=== PATIENT | female | born 1985 | race Caucasian/White ===

== ENCOUNTER 2017-09-22 05:38 | Inpatient (IN) | payer OTHER ==
--- NOTE | 2017-09-14 13:49 | PAT Medication Instructions ---
Service Date Sep 14, 2017. Current Home Medication List Xbezrealyb-Angpfwsopdmnz-Creis (Fioricet), 1 TAB PO PRN Calcium/Vitamin D (Os-Dao 500 Plus D), 1 TAB PO QAM Ferrous Sulfate (Kp Ferrous Sulfate), 1 TAB PO QAM Multivit/Min/Iron/Fol Ac/Pren ( Vitamin), 1 TAB PO QAM [Fiber Tab], 1 TAB PO QAM Medication Instructions For Your Scheduled Surgery - Hold the following medications the morning of surgery: [Fiber Tab], 1 TAB PO QAM Calcium/Vitamin D (Os-Dao 500 Plus D), 1 TAB PO QAM Ferrous Sulfate (Kp Ferrous Sulfate), 1 TAB PO QAM Multivit/Min/Iron/Fol Ac/Pren ( Vitamin), 1 TAB PO QAM Vsigfqzjlm-Ihjtxqdevrdze-Ooajz (Fioricet), 1 TAB PO PRN *nothing to eat or drink after midnight* If you have any questions please call us at [phone] or [phone] or [phone]
[2017-09-14 14:33] LABS: BASO % 0.1 %; BASO ABS # 0.01 K/uL (0-0.2); EOS % 0.3 %; EOS ABS # 0.03 K/uL (0-0.5); HEMATOCRIT 34.1 % (37-47); HEMOGLOBIN 11.6 g/dL (12.0-16.0); IG# 0.02 K/uL (0.00-0.02); LYMPH ABS # 1.42 K/uL (1.2-3.4); MEAN CORPUSCULAR HEMOGLOBIN 32.3 pg (25-34); MEAN PLATELET VOLUME 10.9 fL (7.4-10.4); MONO % 6.8 %; MONO ABS # 0.64 K/uL (0.11-0.59); NEUT % 77.6 %; NEUT ABS # 7.33 K/uL (1.4-6.5); PLATELET COUNT 245 K/uL (130-400); RED CELL DISTRIBUTION WIDTH SD 52.5 fL (36.4-46.3); WHITE BLOOD COUNT 9.45 K/uL (4.8-10.8)
[~2017-09-22] VITALS: Ht 162.6 cm; Wt 114.8 kg
[2017-09-22] VITALS (13 sets, daily range): BP systolic 110–125; BP diastolic 67–77; PULSE 52–64; TEMP 36.3–36.7; O2SAT 97–100; Ht 162.6 cm; Wt 114.8 kg
[~2017-09-22 05:38] MED LIST: BUTA1CAP17 PO; CALC500C70 PO; FERR1TAB13 PO; FIBER TAB PO; PRENTAB26 PO
[2017-09-22 05:58] LABS: BASO % 0.2 %; BASO ABS # 0.02 K/uL (0-0.2); EOS % 0.6 %; EOS ABS # 0.05 K/uL (0-0.5); HEMATOCRIT 32.7 % (37-47); HEMOGLOBIN 11.4 g/dL (12.0-16.0); IG# 0.02 K/uL (0.00-0.02); LYMPH % 17.7 %; LYMPH ABS # 1.46 K/uL (1.2-3.4); MEAN CORPUSCULAR HEMOGLOBIN 32.8 pg (25-34); MEAN PLATELET VOLUME 9.9 fL (7.4-10.4); MONO % 10.2 %; MONO ABS # 0.84 K/uL (0.11-0.59); NEUT % 71.1 %; NEUT ABS # 5.84 K/uL (1.4-6.5); PLATELET COUNT 233 K/uL (130-400); RED CELL DISTRIBUTION WIDTH SD 50.7 fL (36.4-46.3); WHITE BLOOD COUNT 8.23 K/uL (4.8-10.8)
[2017-09-22] MEDS: LACTATED RINGER'S 1000ML 1,000 ML IV SCH ×2 (06:00→06:57)
[2017-09-22] MEDS ORDERED: CITRIC ACID/SODIUM CITRATE 15 ML UDC PO SCH (06:00)
[2017-09-22] MEDS ORDERED: CEFAZOLIN IV 3,000 MG in SYRINGE 0 ML IV SCH (06:00)
[2017-09-22 06:01] LABS: MEAN CORPUSCULAR HGB CONC 34.9 g/dl (32-36)
[2017-09-22] MEDS ORDERED: HYDROmorphone INJ 1 MG/ML SYR IV PRN (06:30)
[2017-09-22] MEDS ORDERED: PROMETHAZINE HCL INJ 12.5 MG in SODIUM CHLORIDE 0.9% 50ML 50 ML IV PRN (06:30)
[2017-09-22] MEDS ORDERED: FENTANYL CITRATE INJ 50 MCG/1 ML 2 ML VIAL IV PRN (06:30)
[2017-09-22] MEDS ORDERED: ACETAMINOPHEN 1000 MG/100 ML IV IV SCH (06:30)
[2017-09-22] MEDS ORDERED: EpHEDrine SULFATE INJ 50 MG/ML AMP IV PRN ×2 (06:30→09:00)
[2017-09-22] MEDS ORDERED: ATROPINE SULFATE 0.1 MG/ML 5ML SYR IV PRN (06:30)
[2017-09-22] MEDS ORDERED: PHENYLEPHRINE 100MCG/ML 5ML SYR IV PRN (06:30)
[2017-09-22] MEDS ORDERED: ONDANSETRON INJ 2 MG/ML 2 ML VIAL IV PRN ×2 (06:30→09:00)
[2017-09-22] MEDS ORDERED: EpHEDrine SULFATE INJ 50 MG/ML AMP ONE (06:31)
[2017-09-22] MEDS ORDERED: PHENYLEPHRINE HCL INJ 10 MG/ML VIAL ONE ×2 (06:31→07:37)
[2017-09-22] MEDS ORDERED: OXYTOCIN INJ 10 UNITS/ML VIAL ONE ×3 (06:32→07:37)
[2017-09-22] MEDS ORDERED: FENTANYL CITRATE INJ 50 MCG/1 ML 2 ML VIAL ONE (06:53)
[2017-09-22] MEDS ORDERED: MoRPHine SULFATE PF 1 MG/ML 10 ML AMP/VIAL ONE (06:53)
--- NOTE | 2017-09-22 07:05 | History & Physical Bridge Note ---
H&P Re-Evaluation Bridge Note: I have examined the patient, reviewed the History & Physical and in the interval since the performance of the History & Physical I have noted the following changes of clinical significance: No changes noted
[2017-09-22] MEDS ORDERED: LACTATED RINGER'S 1000ML 1,000 ML IV SCH (08:36)
--- NOTE | 2017-09-22 08:40 | [facility] Post Operative Brief Note ---
Immediate Operative Summary Operative Date Sep 22, 2017. Pre-Operative Diagnosis Term ; History of prior Caesarean Section;Requesting Permanent Sterilization Post-Operative Diagnosis Same Procedure(s) Performed Repeat Caesarean Section with bilateral tubal ligation Surgeon Dr. Olivarez Carton Stamper Surgeon(s) Dr. Colon Estimated Blood Loss 600 cc Findings Consistent with Post-Op Diagnosis Specimens cord blood placenta-exam portions of right and left fallopian tubes Drains Rojas to [place] Anesthesia Type Spinal Complication(s) none Disposition Accompanied Pt To Recover: no Disposition: L&D
[2017-09-22] MEDS ORDERED: BENZOCAINE 20% AER SPR 82.5 GM CAN EXT PRN (08:45)
[2017-09-22] MEDS ORDERED: DIPHTHERIA/TETANUS/PERTUSSIS 0.5 ML SYR/VIAL IM. ONE (08:45)
[2017-09-22] MEDS ORDERED: HYDROCORTISONE ACETATE 25 MG SUPP PR PRN (08:45)
[2017-09-22] MEDS ORDERED: LANOLIN OINT EXT PRN (08:45)
[2017-09-22] MEDS ORDERED: SENNA 8.6 MG TAB PO PRN (08:45)
[2017-09-22] MEDS ORDERED: MAGNESIUM HYDROXIDE SUSP 30 ML UDC PO PRN (08:45)
[2017-09-22] MEDS ORDERED: SUPERCREAM 0.870 % 15GM JAR EXT PRN (08:45)
[2017-09-22] MEDS ORDERED: LACTATED RINGER'S 1000ML 500 ML IV PRN (08:48)
[2017-09-22] MEDS ORDERED: SODIUM CHLORIDE 0.9% 1000ML 1,000 ML IV PRN (08:48)
[2017-09-22] MEDS ORDERED: NALOXONE HCL INJ 1 MG in SODIUM CHLORIDE 0.9% 1000ML 1,000 ML IV PRN ×4 (08:48)
[2017-09-22] MEDS ORDERED: NALOXONE HCL INJ 0.08 MG in SYRINGE 1.8 ML IV PRN (08:48)
[2017-09-22] MEDS ORDERED: MoRPHine SULFATE 2 MG/ML CARP IV PRN (09:00)
[2017-09-22] MEDS ORDERED: DiphenhydrAMINE HCL 50 MG/ML VIAL IV PRN (09:00)
[2017-09-22] MEDS ORDERED: METOCLOPRAMIDE HCL INJ 20 MG in SODIUM CHLORIDE 0.9% 50ML 50 ML IV PRN (09:00)
[2017-09-22] MEDS: SIMETHICONE 80 MG CHEW PO SCH ×4 (09:00→20:25)
[2017-09-22] MEDS ORDERED: NALBUPHINE HCL INJ 10 MG/ML AMP IV PRN (09:00)
[2017-09-22] MEDS ORDERED: NO NARCOTICS OR SEDATIVES SCH (09:00)
[2017-09-22] MEDS ORDERED: KETOROLAC TROMETHAMINE 30 MG/ML VIAL IV. PRN (09:00)
[2017-09-22] MEDS ORDERED: PROMETHAZINE HCL INJ 25 MG in SODIUM CHLORIDE 0.9% 50ML 50 ML IV PRN (09:00)
[2017-09-22] MEDS ORDERED: MEPERIDINE HCL 25 MG/ML CARP IV PRN (09:00)
[2017-09-22] MEDS ORDERED: NALOXONE HCL 0.4 MG/1 ML VIAL/CARP IV PRN (09:00)
[2017-09-22] MEDS ORDERED: MoRPHine SULFATE PF 1 MG/ML 10 ML AMP/VIAL EPI PRN (09:00)
[2017-09-22] MEDS: OXYTOCIN INJ 30 UNITS in LACTATED RINGER'S 1000ML 1,000 ML IV SCH ×2 (09:07→17:46)
--- NOTE | 2017-09-22 09:40 | OPERATIVE REPORT ---
DATE OF OPERATION: 09/22/2017 PREOPERATIVE DIAGNOSES: 1. Intrauterine at 39 weeks' gestation. 2. History of prior section x2, requesting repeat section. 3. Requesting permanent sterilization. POSTOPERATIVE DIAGNOSES: Same. OPERATIVE PROCEDURE: Repeat low transverse section with bilateral tubal ligation. SURGEON: Dr. Paul Olivarez. TRAFFIC I MANAGER: Dr. Brandan Almeida. ANESTHESIA: Spinal. ESTIMATED BLOOD LOSS: 600 mL. IV FLUIDS: 1300 mL crystalloids. SPECIMENS: Cord blood and placenta to pathology and portions of left and right fallopian tubes. DRAINS: Rojas to gravity. COMPLICATIONS: None. DISPOSITION: Labor and delivery. OPERATIVE FINDINGS: The patient delivered a viable female in the vertex position at 07:53 a.m. on 09/22/2017 via repeat low transverse section. Apgars and weight are pending. Cord blood was then obtained and an intact placenta with 3-vessel cord was delivered manually at 07:54 and sent to pathology. Grossly normal uterus and bilateral tubes and ovaries were noted. Bilateral tubal ligation was performed via [place] technique. Bilateral tubal segments were sent to pathology. Both the patient and baby tolerated the surgery well and were sent to recovery with stable vital signs. OPERATIVE PROCEDURE IN DETAIL: The patient was taken to the operating room, where spinal anesthesia was administered. She was immediately placed in dorsal supine position with a left lateral tilt and was prepped and draped in a manner appropriate for the procedure. Once anesthesia was found be adequate, a Pfannenstiel skin incision was made over the previous surgical scar and was carried down through to a layer of the rectus fascia. The fascia was nicked in the midline and extended bilaterally with curved Colindres scissors. The superior aspect of the fascial incision was grasped with Lisa clamps, elevated, and the rectus muscles were dissected off with the use of the electrocautery and curved Colindres scissors. Likewise, the inferior aspect of the fascial incision was grasped with Lisa clamps, elevated, and the rectus muscles were dissected off with the use of the curved Colindres scissors and electrocautery. The rectus muscles were in midline. Peritoneum was entered bluntly and extended cephalocaudally with gentle traction. The bladder blade was then placed within the abdomen. The vesicouterine peritoneum was then identified and a bladder flap was created with Metzenbaum scissors and digital traction. The bladder was pushed away from the lower uterine segment and a bladder flap was reincorporated beneath the bladder blade. A transverse incision was then made on the uterus and extended bilaterally with digital traction. Membranes were ruptured with clear amniotic fluid noted. The baby's head was identified and delivered through the incision along with the rest of the baby. Baby was bulb suctioned at delivery. Cord was clamped x2. The baby was immediately handed to an awaiting horizontal resaw operator for further evaluation and management. Please see their notes for further baby assessment. Cord blood was then obtained and intact placenta with 3-vessel cord delivered through the incision manually and sent to pathology. The uterus was then exteriorized and wrapped in a moist laparotomy sponge. The uterus was then cleared of any trailing membranes and debris with the laparotomy sponge. The uterine incision was then grasped with ring forceps at 4 quadrants and was closed with 0 Vicryl suture in continuous locking fashion. A second layer of 0 Vicryl suture was used in an imbricating fashion to ensure hemostasis. Any residual bleeding was suture ligated with 0 Vicryl suture in a [id number] interrupted fashion. Excellent hemostasis was noted at the incision. Attention was then directed towards the right adnexa, where the right fallopian tube was followed out to its fimbriated end. The fallopian tube was grasped at midpoint and was suture ligated with 0 chromic suture via [place] technique and was doubly suture ligated. The tubal segment was then removed with Metzenbaum scissors and sent to pathology. Tubal stumps were then cauterized. Attention was directed towards the left fallopian tube, which was likewise followed out to its fimbriated end, grasped at midportion with a [place] clamp and doubly suture ligated with 0 chromic suture via [place] technique. Tubal segment was then removed with Metzenbaum scissors and sent to pathology. The tubal stumps were then cauterized. The posterior cul-de-sac was then irrigated with warm saline solution. The uterus was then placed back within its normal anatomic position within the abdomen. The anterior cul-de-sac was then irrigated with warm saline solution. The incision was noted to be hemostatic. Madonna was placed over the incision for hemostatic purposes. All instruments were then removed from the abdomen. The peritoneum was grasped with Sandee clamps and closed with 2-0 Vicryl suture in continuous running fashion. The rectus fascia was then closed with 0 Vicryl suture in continuous running fashion. Subcutaneous tissue was reapproximated with 2-0 Vicryl suture. Skin was then closed with magdalena. Excellent hemostasis was noted through all tissue layers. All sponge, instrument and needle counts were found to be correct x2. The patient tolerated the procedure well and was sent to recovery with stable vital signs. I attest to the content of the Intraoperative Record and any orders documented therein. Any exception s are noted below.
--- NOTE | 2017-09-22 10:45 | Anesthesiology Progress Note ---
Anesthesia Post Op Note Date & Time Sep 22, 2017 at 10:45 Notes Mental Status: alert / awake / arousable, participated in evaluation Pt Amnestic to Procedure: Yes Nausea / Vomiting: adequately controlled Pain: adequately controlled Airway Patency, RR, SpO2: stable & adequate BP & HR: stable & adequate Hydration State: stable & adequate Neuraxial Anesthesia: was administered, sensory block is resolving Anesthetic Complications: no major complications apparent
[2017-09-22] MEDS: DOCUSATE SODIUM 100 MG CAP PO SCH (20:25)
[2017-09-23] VITALS (11 sets, daily range): BP systolic 90–121; BP diastolic 62–76; PULSE 62–69; TEMP 36.6–37.1; O2SAT 96–99
[2017-09-23] MEDS ORDERED: OXYCODONE/ACETAMINOPHEN 5-325 TAB PO PRN (01:30)
[2017-09-23] MEDS ORDERED: KETOROLAC TROMETHAMINE 30 MG/ML VIAL IV. PRN (01:30)
[2017-09-23] MEDS ORDERED: DC INTRASPINAL MORPHINE ONE (01:30)
[2017-09-23] MEDS ORDERED: ONDANSETRON INJ 2 MG/ML 2 ML VIAL IV PRN (01:30)
[2017-09-23 07:04] LABS: BASO % 0.1 %; BASO ABS # 0.01 K/uL (0-0.2); EOS % 0.4 %; EOS ABS # 0.04 K/uL (0-0.5); HEMATOCRIT 32.5 % (37-47); HEMOGLOBIN 10.7 g/dL (12.0-16.0); IG# 0.03 K/uL (0.00-0.02); LYMPH % 6.9 %; LYMPH ABS # 0.75 K/uL (1.2-3.4); MEAN CELL VOLUME 96.4 fL (80-100); MEAN CORPUSCULAR HEMOGLOBIN 31.8 pg (25-34); MEAN CORPUSCULAR HGB CONC 32.9 g/dl (32-36); MEAN PLATELET VOLUME 10.6 fL (7.4-10.4); MONO % 8.5 %; MONO ABS # 0.92 K/uL (0.11-0.59); NEUT % 83.8 %; NEUT ABS # 9.11 K/uL (1.4-6.5); PLATELET COUNT 195 K/uL (130-400); RED CELL DISTRIBUTION WIDTH CV 15.4 % (11.5-14.5); RED CELL DISTRIBUTION WIDTH SD 53.5 fL (36.4-46.3); WHITE BLOOD COUNT 10.86 K/uL (4.8-10.8)
--- NOTE | 2017-09-23 07:37 | OB/GYN Progress Note ---
VOICE COACH Progress Note Date of Service: Sep 23, 2017. Patient is seen and examined. She feels well, no complaints. Pain is under control with oral meds. Ambulating without dizziness Voiding without difficulty Tolerating clear diet with out N&V Flatus + BM NEG Bleeding is minimal No fever/ chills/ CP/ SOB/ N&V/ Leg pain Breast feeding without problems Date Time Temp Pulse Resp B/P (MAP) Pulse Ox O2 Delivery O2 Flow Rate FiO2 09/23/17 04:19 36.8 67 18 105/70 (82) 97 Room Air 09/23/17 01:30 18 97 09/23/17 01:00 16 96 09/23/17 00:00 16 96 09/23/17 00:00 98 Room Air 09/23/17 00:00 36.7 62 18 121/76 (91) 98 Room Air 09/22/17 23:00 18 98 09/22/17 21:00 20 98 09/22/17 20:15 20 97 09/22/17 19:05 18 97 09/22/17 19:05 36.7 64 18 110/71 (84) 97 Room Air 09/22/17 19:05 97 Room Air 09/22/17 18:15 16 99 09/22/17 17:15 15 100 09/22/17 16:15 16 100 09/22/17 15:15 36.7 54 16 114/67 (83) Room Air 09/22/17 15:15 16 100 09/22/17 15:15 100 Room Air 09/22/17 14:15 18 100 09/22/17 13:15 18 99 09/22/17 12:15 16 100 09/22/17 11:45 36.4 58 16 125/77 (93) 100 Room Air 09/22/17 11:15 99 Room Air 09/22/17 11:15 16 99 09/22/17 11:15 36.3 52 16 110/71 (84) 99 Room Air Last 24 Hours Test 09/23/17 05:57 White Blood Count 10.86 K/uL Red Blood Count 3.37 M/uL Hemoglobin 10.7 g/dL Hematocrit 32.5 % Mean Corpuscular Volume 96.4 fL Mean Corpuscular Hemoglobin 31.8 pg Mean Corpuscular Hemoglobin Concent 32.9 g/dl Platelet Count 195 K/uL Mean Platelet Volume 10.6 fL Neutrophils (%) (Auto) 83.8 % Lymphocytes (%) (Auto) 6.9 % Monocytes (%) (Auto) 8.5 % Eosinophils (%) (Auto) 0.4 % Basophils (%) (Auto) 0.1 % Neutrophils # (Auto) 9.11 K/uL Lymphocytes # (Auto) 0.75 K/uL Monocytes # (Auto) 0.92 K/uL Eosinophils # (Auto) 0.04 K/uL Basophils # (Auto) 0.01 K/uL RDW Standard Deviation 53.5 fL RDW Coefficient of Variation 15.4 % Immature Granulocyte % (Auto) 0.3 % Immature Granulocyte # (Auto) 0.03 K/uL PE: General: Alert, orientedx3, NAD CVS: S1S2 RRR Lungs; CTAB Abd: soft, NT, ND, BS+, fundus firm, below Umbilicus Dressing: Clean, dry, intact, will remove after 24 hours from surgery Perineum intact, Lochia rubra minimal Ext; NT, no edema AP: 32 yo s/p C Section, pod# 1 VSS Afebrile doing well Continue routine postop care Encourage ambulation, PO intake All questions were answered
[2017-09-23] MEDS: FERROUS SULFATE 325 MG TAB PO SCH (07:59)
[2017-09-23] MEDS: SIMETHICONE 80 MG CHEW PO SCH ×4 (07:59→20:16)
[2017-09-23] MEDS: PRENATAL VITAMIN TAB PO SCH (07:59)
[2017-09-23] MEDS: DOCUSATE SODIUM 100 MG CAP PO SCH ×2 (07:59→20:16)
[2017-09-23] MEDS: IBUPROFEN 600 MG TAB PO PRN ×3 (13:16→22:08)
[2017-09-23] MEDS: OXYCODONE/ACETAMINOPHEN 5-325 TAB PO PRN ×2 (17:10→22:08)
[2017-09-23] MEDS ORDERED: BISACODYL 5 MG TABEC PO ONE (22:00)
[2017-09-24 07:02] LABS: HEMOGLOBIN 11.1 g/dL (12.0-16.0)
[2017-09-24] MEDS: FERROUS SULFATE 325 MG TAB PO SCH (07:49)
[2017-09-24] MEDS: SIMETHICONE 80 MG CHEW PO SCH ×2 (07:49→11:58)
[2017-09-24] MEDS: DOCUSATE SODIUM 100 MG CAP PO SCH (07:49)
[2017-09-24] MEDS: PRENATAL VITAMIN TAB PO SCH (07:49)
[2017-09-24] MEDS: IBUPROFEN 600 MG TAB PO PRN ×2 (07:50→12:24)
[2017-09-24] MEDS: OXYCODONE/ACETAMINOPHEN 5-325 TAB PO PRN ×2 (07:50→12:25)
[2017-09-24 07:55] VITALS: BP 115/78; PULSE 67; TEMP 36.7; O2SAT 100
[2017-09-24] MEDS ORDERED: BISACODYL 10 MG SUPP PR PRN (08:45)
--- NOTE | 2017-09-24 10:44 | OB/GYN Progress Note ---
POWER PROJECT MANAGER Progress Note Date of Service Sep 24, 2017. Subjective conversation w/ patient, physical exam Ambulation: ambulating normally Voiding: no voiding problems Passing Gas: Yes Diet Tolerance: Regular Diet Lochia: Moderate Feeding Type: Breast Feeding Review of Systems Constitutional: No fever, No chills, No sweats, No weight loss, No weakness, No fatigue, No problem reported Respiratory: No cough, No sputum, No wheezing, No shortness of breath, No dyspnea on exertion, No dyspnea at rest, No hemoptysis, No problem reported Cardiac: No chest pain, No orthopnea, No PND, No edema, No claudication, No palpitations, No problem reported Breast: No see HPI, No breast lump, No change in shape, No nipple discharge, No breast pain, No problem reported Abdomen: No pain, No nausea, No vomiting, No diarrhea, No constipation, No GI bleeding, No problem reported Female : No see HPI, No dysuria, No urinary frequency, No hematuria, No incontinence, No abnormal vaginal bleeding, No vaginal discharge, No problem reported Objective Vital Signs Date Time Temp Pulse Resp B/P (MAP) Pulse Ox O2 Delivery O2 Flow Rate FiO2 09/23/17 23:50 36.6 69 16 90/62 (71) 97 Room Air 09/23/17 23:50 97 Room Air 09/23/17 20:15 36.6 69 20 102/70 (81) 99 Room Air 09/23/17 16:00 37.1 68 16 107/73 (84) Physical Exam General Appearance: WELL-APPEARING, WD/WN, NO APPARENT DISTRESS Respiratory/Chest: chest non-tender, lungs clear, normal breath sounds Cardiovascular: regular rate, rhythm, no edema, no gallop Abdomen: normal bowel sounds, non tender, soft Fundus: Firm Incision Description: Clean, Dry & Intact Extremities: normal range of motion, non-tender, normal inspection Laboratory Results Last 24 Hours Test 09/24/17 06:29 Hemoglobin 11.1 g/dL Hematocrit 33.0 % Assessment and Plan Day Number: 2 Continue Routine Care: Post top day #2 pt doing well pt wishes to be discharged home today
[2017-09-24] MEDS ORDERED: MTR600X PO (10:45)
[2017-09-24] MEDS ORDERED: OXYC-57 PO (10:45)
--- NOTE | 2017-09-24 10:47 | Discharge Instructions ---
Discharge Instructions Date of Service Sep 24, 2017. Admission Reason for Admission: Previous Section, Desires Sterilization Discharge Discharge Diagnosis / Problem: postop Discharge Goals Goal(s): Routine recovery after Activity Recommendations Activity Limitations: as noted below ACTIVITY RECOMMENDATIONS: * Gradual return to full activity over the next 2-3 weeks. * No lifting - nothing heavier than baby over the next 2-3 weeks. * Do not engage in vigorous exercise, sexual activity or sports until cleared by your physician. * Do not drive or operate any motorized equipment until cleared by your physician. * You may shower/bathe daily. BREAST CARE: If you are not breast feeding: * Wear a supportive bra 24 hours a day for one to two weeks. * Avoid stimulating your breasts and nipples as much as possible during the first few weeks after delivery. * When taking a shower, have the warm water hit your back, not breasts. * When your breasts feel full, apply ice packs. Usually three to four times a day helps ease the discomfort. * Take a mild pain medication (Tylenol/Motrin) when you are uncomfortable. If breast feeding: * Use breast milk to lubricate nipples. Lansinoh cream may be used for sore nipples. You do not need to remove cream prior to breast feeding. If using a different brand of cream, check the label for directions regarding removal of cream prior to nursing. * Wear a supportive bra. * If having problems with breasts or breast feeding, call a corporate health consultant or your health care provider. OVER THE COUNTER MEDICATION: * For discomfort or pain, you may use Acetaminophen (Tylenol), Ibuprofen (Advil ), or Naproxen (Aleve) following the package directions. * For constipation you may use Colace following the package directions. SPECIAL CARE INSTRUCTIONS: When you are discharged from the hospital, it is important for you to follow the instructions listed below: * During the first week at home, you should be able to care for yourself and your baby. In addition, the usual light household activities are encouraged. * Limit your activities to the way you feel. Do not try to clean the house or move furniture. Be sensible. * If you actively engage in sports and have done so up until the time of your delivery, you may resume these activities as soon as you feel able. This may take up to one month or even longer. Use good judgment. * Continue to take your vitamins for at least six weeks after the of your baby. * Your diet need not be limited unless you were on a special diet before your delivery. Breast-feeding mothers need around 2500 calories per day and at least 64-80 ounces of fluid per day (8 to 10 glasses). * You should eat foods from the four major food groups. Crash diets or fad diets are to be avoided. Eating lean meats, fresh fruits and vegetables, low-fat dairy products, high fiber foods and a regular exercise program, will help you get back to your pre- weight without putting your health at risk. * Constipation is sometimes a problem after delivery. Take a mild laxative as needed. If breast feeding, Milk of Magnesia is acceptable to use. You may use a suppository or Fleets enema if no episiotomy. * A daily shower or tub bath is suggested. Be sure to thoroughly and gently dry the perineum. * A bloody vaginal discharge will usually continue until around four weeks post . A small amount of bleeding may continue for as long as six weeks. Vaginal discharge changes from the bright red bleeding after delivery to pink then brownish and finally yellowish-pink before becoming white and disappearing. * Bleeding may increase with activity. Your first period may come in 4-8 weeks. If you are breast feeding, your period may be delayed even longer. * [place] (sex) can begin whenever both you and your partner feel comfortable and do not have any form of genital infection. It is recommended that you wait at least six weeks for internal and external healing to occur. If you have questions, please talk to your health care practitioner. A condom should be used to prevent infection and . * Foreplay, gentle intercourse and lubrication is very important the first several times to prevent pain. A water-based lubricant such as K-Y jelly or Astroglide may be used. * Tampons and/or Douching should be avoided until after six weeks check-up. * If you have RH negative blood and your baby is RH positive, you will receive RHOGAM by injection prior to discharge. The nurse will give you a card to keep with you that has the date and place that you received RHOGAM after delivery. * During your care, you had a Rubella screen done to check for the presence of rubella antibodies in your blood. If your test was negative, you will receive a Rubella vaccine prior to discharge. This vaccine may cause a fever, soreness at the injection site and flu-like symptoms. If these symptoms persist, notify your health care practitioner. is not advised for three months after a Rubella vaccine. * Verbalizes understanding of car seat law as reviewed with patient nursing. * Car Seat hand-out given and reviewed with patient by nursing. * Shaken baby information reviewed with patient by nursing. Call you doctor if: * Heavy bleeding (saturating several pads an hour) or passing clots the size of your fist. * A fever >101 degrees F (38.3 degrees C) on two occasions four hours apart and /or chills. * Unusual pain in the pelvic or vaginal areas. Pain should improve each day . * Call the doctor for any increased redness, drainage or swelling around the incision and any pain unrelieved by prescribed pain medication. * Any signs or symptoms of phlebitis (possible blood clots forming in the veins ): leg pain, warm, red or swollen area on leg. * "Baby Blues" lasting longer than two weeks. If you have any questions or concerns, call your health care practitioner at . FOLLOW-UP VISIT: * Incision check (staple removal) in 1 week. Please call doctor's office at to set up appointment. * Please call the office at to schedule a 6 week examination. It is important you keep this appointment. * It is important for you to make arrangements for either yearly or twice yearly check-ups thereafter. . Current Hospital Diet Patient's current hospital diet: Regular OB Diet Discharge Diet Recommended Diet: Regular Diet Procedures Procedures Performed: Repeat Caesarean Section with bilateral tubal ligation Pending Studies Studies pending at discharge: no Medical Emergencies . Who to Call and When: Medical Emergencies: If at any time you feel your situation is an emergency, please call [phone] immediately. . Non-Emergent Contact Non-Emergency issues call your: Specialist . . "Provider Documentation" section prepared by Sam Silva. . VTE Core Measure Inpt VTE Proph given/why not?: Treatment not indicated
--- NOTE | 2017-09-27 12:03 | Discharge Summary ---
Discharge Summary Date of Service Sep 27, 2017. Discharge Summary Admission Date: Sep 22, 2017 at 05:38 Discharge Date: Sep 24, 2017 Discharge Disposition: Home Principal Diagnosis: 1. Intrauterine at 39 weeks' gestation. 2. History of prior section x2, requesting repeat section. 3. Requesting permanent sterilization. Procedures: Repeat Low Transverse Section with Bilateral Tubal Ligation Medication Reconciliation New Medications: Ibuprofen (Ibuprofen) 600 Mg Tab 600 MG PO Q4H PRN for Pain, LYNN, Cramping, or Fever, #30 TAB Oxycodone/Acetaminophen 5MG/325MG (Percocet 5MG/325MG) Tab 1 TAB PO Q4H PRN for Pain - Pain Scale 1-5, #30 TAB PAIN Continued Medications: Pynmxjyzlk-Mskzkzcnwkmzv-Utqbh (Fioricet) 1 Cap Cap 1 TAB PO PRN Calcium/Vitamin D (Os-Dao 500 Plus D) Tab 1 TAB PO QAM, TAB Ferrous Sulfate (Kp Ferrous Sulfate) 325 Mg Tab 1 TAB PO QAM for 30 Days, #30 TAB 3 Refills Multivit/Min/Iron/Fol Ac/Pren ( Vitamin) Tab 1 TAB PO QAM, TAB [Fiber Tab] () 1 TAB PO QAM Admission Information HPI (per Admitting provider): Patient is a 32 y/o at 39 weeks who presented to L&D for a scheduled repeat C/S with BTL. Her was complicated with SLE and class III obesity. She has a history two prior C/S and is requesting a repeat with BTL. Risks, benefits and alternatives were discussed and informed consent was signed. Physical Exam (per Admitting): General Appearance: WD/WN, no apparent distress Respiratory/Chest: chest non-tender, lungs clear Cardiovascular: regular rate, rhythm Abdomen/GI: normal bowel sounds, non tender, soft Neurologic/Psych: alert, oriented x 3 Skin: normal color, warm/dry, no rash Hospital Course Patient underwent her scheduled repeat C/S with BTL on the day of admission without complications. She was sent to recovery with stable vital signs. Her postop recovery was uneventful. Her khan catheter was removed on the morning of POD# 1 and her diet and activity were advanced as tolerated. Her incision remained clean, dry and intact. She was discharged on POD # 2 with discharge instructions. Total time spent on discharge = 20 mins This includes examination of the patient, discharge planning, medication reconciliation, and communication with other providers. Discharge Instructions ACTIVITY RECOMMENDATIONS: * Gradual return to full activity over the next 2-3 weeks. * No lifting - nothing heavier than baby over the next 2-3 weeks. * Do not engage in vigorous exercise, sexual activity or sports until cleared by your physician. * Do not drive or operate any motorized equipment until cleared by your physician. * You may shower/bathe daily. BREAST CARE: If you are not breast feeding: * Wear a supportive bra 24 hours a day for one to two weeks. * Avoid stimulating your breasts and nipples as much as possible during the first few weeks after delivery. * When taking a shower, have the warm water hit your back, not breasts. * When your breasts feel full, apply ice packs. Usually three to four times a day helps ease the discomfort. * Take a mild pain medication (Tylenol/Motrin) when you are uncomfortable. If breast feeding: * Use breast milk to lubricate nipples. Lansinoh cream may be used for sore nipples. You do not need to remove cream prior to breast feeding. If using a different brand of cream, check the label for directions regarding removal of cream prior to nursing. * Wear a supportive bra. * If having problems with breasts or breast feeding, call a regulatory consultant or your health care provider. OVER THE COUNTER MEDICATION: * For discomfort or pain, you may use Acetaminophen (Tylenol), Ibuprofen (Advil ), or Naproxen (Aleve) following the package directions. * For constipation you may use Colace following the package directions. SPECIAL CARE INSTRUCTIONS: When you are discharged from the hospital, it is important for you to follow the instructions listed below: * During the first week at home, you should be able to care for yourself and your baby. In addition, the usual light household activities are encouraged. * Limit your activities to the way you feel. Do not try to clean the house or move furniture. Be sensible. * If you actively engage in sports and have done so up until the time of your delivery, you may resume these activities as soon as you feel able. This may take up to one month or even longer. Use good judgment. * Continue to take your vitamins for at least six weeks after the of your baby. * Your diet need not be limited unless you were on a special diet before your delivery. Breast-feeding mothers need around 2500 calories per day and at least 64-80 ounces of fluid per day (8 to 10 glasses). * You should eat foods from the four major food groups. Crash diets or fad diets are to be avoided. Eating lean meats, fresh fruits and vegetables, low-fat dairy products, high fiber foods and a regular exercise program, will help you get back to your pre- weight without putting your health at risk. * Constipation is sometimes a problem after delivery. Take a mild laxative as needed. If breast feeding, Milk of Magnesia is acceptable to use. You may use a suppository or Fleets enema if no episiotomy. * A daily shower or tub bath is suggested. Be sure to thoroughly and gently dry the perineum. * A bloody vaginal discharge will usually continue until around four weeks post . A small amount of bleeding may continue for as long as six weeks. Vaginal discharge changes from the bright red bleeding after delivery to pink then brownish and finally yellowish-pink before becoming white and disappearing. * Bleeding may increase with activity. Your first period may come in 4-8 weeks. If you are breast feeding, your period may be delayed even longer. * Oatman (sex) can begin whenever both you and your partner feel comfortable and do not have any form of genital infection. It is recommended that you wait at least six weeks for internal and external healing to occur. If you have questions, please talk to your health care practitioner. A condom should be used to prevent infection and . * Foreplay, gentle intercourse and lubrication is very important the first several times to prevent pain. A water-based lubricant such as K-Y jelly or Astroglide may be used. * Tampons and/or Douching should be avoided until after six weeks check-up. * If you have RH negative blood and your baby is RH positive, you will receive RHOGAM by injection prior to discharge. The nurse will give you a card to keep with you that has the date and place that you received RHOGAM after delivery. * During your care, you had a Rubella screen done to check for the presence of rubella antibodies in your blood. If your test was negative, you will receive a Rubella vaccine prior to discharge. This vaccine may cause a fever, soreness at the injection site and flu-like symptoms. If these symptoms persist, notify your health care practitioner. is not advised for three months after a Rubella vaccine. * Verbalizes understanding of car seat law as reviewed with patient nursing. * Car Seat hand-out given and reviewed with patient by nursing. * Shaken baby information reviewed with patient by nursing. Call you doctor if: * Heavy bleeding (saturating several pads an hour) or passing clots the size of your fist. * A fever >101 degrees F (38.3 degrees C) on two occasions four hours apart and /or chills. * Unusual pain in the pelvic or vaginal areas. Pain should improve each day . * Call the doctor for any increased redness, drainage or swelling around the incision and any pain unrelieved by prescribed pain medication. * Any signs or symptoms of phlebitis (possible blood clots forming in the veins ): leg pain, warm, red or swollen area on leg. * "Baby Blues" lasting longer than two weeks. If you have any questions or concerns, call your health care practitioner at . FOLLOW-UP VISIT: * Incision check (staple removal) in 1 week. Please call doctor's office at to set up appointment. * Please call the office at to schedule a 6 week examination. It is important you keep this appointment. * It is important for you to make arrangements for either yearly or twice yearly check-ups thereafter.
== END 2017-09-24 13:45 | disposition home or self-care (01) | DRG 766 ==
LOC: C.LD 05:38 → C.OBG 11:07 → EDSTATUS 13:53
PROVIDERS: ADMIT Obstetrics & Gynecology; ATTEND Obstetrics & Gynecology
PROC: 10D00Z1 Extraction of Products of Conception, Low, Open Approach (ICD-10-PCS; principal; 2017-09-22 07:30)
PROC: 0UL70ZZ Occlusion of Bilateral Fallopian Tubes, Open Approach (ICD-10-PCS; principal; 2017-09-22 07:30)
DX: O99.89 Other specified diseases and conditions complicating pregnancy, childbirth and the puerperium (principal); M32.9 Systemic lupus erythematosus, unspecified; O99.214 Obesity complicating childbirth; E66.01 Morbid (severe) obesity due to excess calories; Z30.2 Encounter for sterilization; Z3A.39 39 weeks gestation of pregnancy; Z37.0 Single live birth; Z87.891 Personal history of nicotine dependence

== ENCOUNTER 2025-02-17 22:36 | Observation (INO) ==
[2025-02-17] MEDS: AMPICILLIN/SULBACTAM SOD 3,000 MG/100 ML BAG IV STA (23:16)
--- NOTE | 2025-02-17 23:41 | Emergency Department Note ---
Impression & Plan Dog bite, Cellulitis of face ED Provider Note CHIEF COMPLAINT: Abscess left side of the face from a dog bite HISTORY OF PRESENT ILLNESS: This 39 year old female patient presents to the ED today for evaluation of left sided facial pain, swelling, and purulent discharge. Pt. was bitten by a dog 3 days ago (Wednesday morning). She was subsequently seen at [facility] Emergency Department for the wound. The wound was cleansed and repaired with sutures and the patient was started on Augmentin. Pt. has been taking medications and caring for the wound at home, but earlier today, developed purulent discharge, increased swelling, and redness in the area of the laceration on the left side of the face. Pt. denies fever, chills, nausea, vomiting, body aches. No visual disturbances. She has not taken any medications for pain control. Pt. does have history of SLE, lichen sclerosus, migraines. History provided by: Patient REVIEW OF SYSTEMS: A 10 system review of systems was performed with positives and pertinent negatives listed in the history of present illness. All other systems were reviewed and are negative. ALLERGIES: Chlorhexidine PHYSICAL EXAM: VITALS: Vitals are noted on the nurse's note and reviewed by myself. GENERAL: This is a 39-year-old female, in no acute distress, nondiaphoretic, well-developed well-nourished. SKIN: Sutured laceration on the left side of the face with induration and purulent discharge from the suture line with pressure. There is mild surrounding erythema in this area. The skin was without rashes, erythema, edema, or bruising. There is no tenting of the skin. Capillary refill less than 2 seconds. HEAD: Normocephalic atraumatic. EARS: External auditory canals clear, tympanic membranes pearly downing without erythema or effusion bilaterally. No hemotympanum. Negative hughes sign EYES: Pupils equal round and reactive to light and accommodation. Conjunctivae without injection, sclerae without icterus. Extraocular movements intact. NOSE: Patent, turbinates without inflammation or discharge. No sinus tenderness. MOUTH: Mucous membranes moist. Tonsils are not enlarged. Pharynx without erythema or exudate. Uvula midline. Airway patent. Tongue does not deviate. NECK: Supple without nuchal rigidity. No lymphadenopathy. Cervical spine is nontender. No JVD. HEART: Regular rate and rhythm without murmurs gallops or rubs. LUNGS: Clear to auscultation bilaterally without wheezes, rales or rhonchi. No retractions or accessory muscle use. MUSCULOSKELETAL: No muscle atrophy, erythema, or edema noted. Full range of motion without joint tenderness in all extremities. No tenderness to palpation. Normal gait. Strength 5/5 throughout. NEURO: Patient was alert and oriented to person place and time. No focal neurological deficits. An order was placed for continuous food service. The monitor showed a normal sinus rhythm at a ventricular rate of 65 bpm, per my interpretation. Imaging as interpreted by myself and the radiologist revealed thickening and stranding on the left side of the face, but no obvious fluid collection, with radiologist interpretation as above. I agree with the radiologist's findings as based upon my independent interpretation. EMERGENCY DEPARTMENT COURSE: The patient was evaluated as above. The patient presents for concern for an abscess on the left side of the face. She did a dog bite earlier in the week and was started on Augmentin. The bite was sutured at an outside emergency department. Today, the patient developed some purulent discharge from the wound. IV access was obtained, labs were drawn. Patient was medicated with IV Unasyn. Labs reviewed. Per my interpretation, no concerning leukocytosis or anemia. No thrombocytopenia. Renal, hepatic function and electrolytes without significant abnormality. Lactic acid 2.0. Procalcitonin less than 0.02. CT imaging completed and reviewed by myself radiologist as noted. This was concerning for for cellulitic changes, but no obvious fluid collection. The sutures were removed. The purulent discharge was gently expressed with pressure. This was cultured and sent to the lab. At this time, I did discuss options of care with the patient. We discussed option to be discharged to home with close follow-up in about 24 to 48 hours for recheck and continue the oral antibiotics and add in warm compresses and gentle massage of the area in order to continue to express the discharge. I suspect that now that the sutures have been removed that the wound may continue to drain appropriately. We also discussed option to stay in the hospital for admission/observation and repeat dose of IV antibiotics. Ultimately, the patient decided she would be more comfortable remaining in the hospital for observation and additional dose of IV antibiotics. I do feel that this is a reasonable plan given the location of the infection as well as the purulent discharge which was expressed and concern for development of abscess. I discussed the case with Dr. Beyer, [facility] hospitalist physician. He did agree to evaluate the patient for admission. Please see hospitalist dictation regarding ongoing management and final disposition of this patient. Case was discussed with the attending physician. I attest that I have personally reviewed the patient medication list. I attest that I have reviewed the patient's blood pressure and it was found to be elevated. Suspect this to be situational in nature, but did recommend outpatient follow-up with a primary care provider. GCS: 15 In the evaluation and treatment of this patient the following differential diagnoses were entertained: Cellulitis, abscess, MRSA infection, DVT, necrotizing fasciitis, dermatitis, drug eruption, allergic reaction, as well as other pathologies. The chart was completed utilizing [employer] Speech voice recognition software. Grammatical errors, random word insertions, pronoun errors, and incomplete sentences are an occasional consequence of this system due to software limitations, ambient noise, and hardware issues. Any formal questions or concerns about the content, text, or information contained within the body of this dictation should be directly addressed to the provider for clarification. Past Med/Surg History Problem List (Updated 02/18/25 @ 04:34 by Melba Martinez PA-C) Cellulitis of face (Acute) Dog bite (Acute) Medical History Lichen sclerosus Migraines SLE (systemic lupus erythematosus) Social History Smoking Status: Never smoker Preferred Language: Latvian Feels Safe at Home: Yes Allergies Allergies Allergy/AdvReac Type Severity Reaction Status Date / Time No Known Allergies Allergy Unverified 02/18/25 02:34 Home Meds Home Medications Medication Instructions Recorded Confirmed hydroxychloroquine 200 mg tablet 200 mg PO BID 02/18/25 02/18/25 meloxicam 15 mg tablet 15 mg PO QAM 02/18/25 02/18/25 Results & Data (ED) Vital Signs Vital Signs - 24 hr 02/17/25 22:38 02/17/25 23:07 02/17/25 23:22 Temperature 36.3 C L Temperature Source Temporal Artery Scan Pulse Rate 61 62 Pulse Rate [Right Finger] 65 Pulse Rhythm [Right Finger] Regular Pulse Strength [Right Finger] Normal Respiratory Rate 16 17 Respiratory Effort / Characteristics Non-Labored Spontaneous Respiratory Depth Normal Respiratory Pattern Regular Blood Pressure 183/87 H Blood Pressure [Left Arm] 170/91 H Blood Pressure Mean 119 Blood Pressure Mean [Left Arm] 117 Blood Pressure Position [Left Arm] Lying Pulse Oximetry 98 98 Oxygen Delivery Method Room Air Room Air Sepsis Recent Fever Within 48 Hours No Sepsis New/Unexplained Change in Mental Status No Sepsis Action Taken by Nursing No Action Required 02/18/25 01:00 02/18/25 03:00 02/18/25 03:00 Temperature Temperature Source Pulse Rate 53 L Pulse Rate [Right Finger] 55 L 57 L Pulse Rhythm [Right Finger] Regular Regular Pulse Strength [Right Finger] Normal Normal Respiratory Rate 17 16 Respiratory Effort / Characteristics Non-Labored Spontaneous Non-Labored Spontaneous Respiratory Depth Normal Normal Respiratory Pattern Regular Regular Blood Pressure Blood Pressure [Left Arm] 138/98 Blood Pressure Mean Blood Pressure Mean [Left Arm] 111 Blood Pressure Position [Left Arm] Lying Pulse Oximetry 97 98 Oxygen Delivery Method Room Air Room Air Sepsis Recent Fever Within 48 Hours Sepsis New/Unexplained Change in Mental Status Sepsis Action Taken by Nursing Laboratory Data 02/17/25 23:15 02/17/25 23:15 Lab Results 02/17/25 02/17/25 Range/Units 23:15 23:32 WBC 7.13 (4.8-10.8) K/ul RBC 3.98 L (4.20-5.40) M/uL Hgb 12.0 (12.0-16.0) g/dl POC Hgb 11.9 L (12.0-16.0) g/dl Hct 35.5 L (37.0-47.0) % POC Hct 35 L (37-47) % MCV 89.2 (80.0-100.0) fL MCH 30.2 (25.0-34.0) pg MCHC 33.8 (32.0-36.0) g/dL RDW Std Deviation 44.0 (36.4-46.3) fL RDW Coeff of Edgard 13.4 (11.5-14.5) % Plt Count 322 (130-400) K/uL MPV 11.1 (9.4-12.4) fL Immature Gran % (Auto) 0.1 % Neut % (Auto) 67.9 % Lymph % (Auto) 20.2 % Delta % (Auto) 10.0 % Eos % (Auto) 1.1 % Baso % (Auto) 0.7 % Neut # (Auto) 4.84 (1.40-6.50) K/uL Lymph # (Auto) 1.44 (1.20-3.40) K/uL Delta # (Auto) 0.71 H (0.11-0.59) K/uL Eos # (Auto) 0.08 (0.00-0.50) K/uL Baso # (Auto) 0.05 (0.00-0.20) K/uL Immature Gran # (Auto) 0.01 (0.01-0.20) K/uL POC Sodium 140 (135-144) mmol/L Sodium 138 (136-145) mmol/L POC Potassium 3.7 (3.3-5.0) mmol/L Potassium 3.5 (3.5-5.1) mmol/L POC Chloride 106 (101-112) mmol/L Chloride 108 H (98-107) mmol/L Carbon Dioxide 23 (21-32) mmol/L POC Total CO2 23 L (24-31) mmol/L Anion Gap 7 (3-11) POC Anion Gap 17.0 (16-25) mmol/L POC BUN 9 (7-18) mg/dl BUN 10 (6-23) mg/dl Creatinine 0.76 (0.6-1.2) mg/dl POC Creatinine 0.7 (0.6-1.3) mg/dl Est Cr Clr Drug Dosing 120.5 ml/min eGFR 102.16 BUN/Creatinine Ratio 13.2 (10-20) Glucose 107 H (70-99(Fasting)) mg/dl POC Glucose (other) 105 H (70-99) mg/dl Lactate 2.0 (0.4-2.0) mmol/L Calcium 8.6 (8.6-10.3) mg/dl POC Ioniz Calcium Cisco 1.12 (1.12-1.32) mmol/l Total Bilirubin 0.3 (0.2-1.0) mg/dl AST 23 (13-39) U/L ALT 21 (7-52) U/L Alkaline Phosphatase 80 (34-104) U/L Total Protein 7.1 (6.0-8.3) gm/dl Albumin 4.4 (3.4-5.0) gm/dl Globulin 2.7 (2.5-4.0) gm/dl Albumin/Globulin Ratio 1.6 (0.9-2) Procalcitonin < 0.02 (0-0.5) ng/ml Administered Medications Discontinued Medications Ampicillin Sodium/Sulbactam Sodium (Unasyn) 3,000 mg in 100 mls @ 200 mls/hr IV NOW STA Stop: 02/17/25 23:26 Last Infusion: 02/18/25 00:07 Dose: Infused Documented By: Admin: 02/17/25 23:16 Dose: 200 mls/hr Documented By: NATALY Ioversol (Optiray 320 100ml) 93 ml IV ONCE ONE Stop: 02/18/25 00:09 Last Admin: 02/18/25 00:08 Dose: 93 ml Documented By: TERRENCE Imaging Data Radiologist's Impression: Face CT 02/17/25 23:10 EXAM: CT facial bones w con CLINICAL HISTORY: Dog bite left face, sutured, now infected/pus. TECHNIQUE: CT. Scan of the paranasal sinuses/facial bones was performed, with sagittal and coronal multiplanar reconstruction with 93ml Opitray-320mg/ml IV contrast. One of the following dose reduction techniques were utilized for this exam: Automated exposure control, adjustment of the mA and/or kV according to patient size, use of iterative reconstruction. COMPARISON: None. FINDINGS: Soft Tissues: Streak artifacts emanating from the dentral implamts obscure adjacent structures. Subcutaneous fat stranding in the left premaxillary region, without definite evidence of fluid/hypodense collection. Multiple small deep cervical lymph nodes, likely reactive. Sinuses: Mucosal thickening is seen in the left maxillary sinus. Soft Tissues: Soft tissues of the face are normal. No abnormal masses, swelling, or lymphadenopathy. Osteomeatal complexes are patent. Nasal Cavity: Nasal cavity is unremarkable. No masses, polyps, or deviations. Orbits: Orbits are normal in size and shape. The extraocular muscles and optic nerves are normal. No evidence of orbital masses or proptosis. Maxilla and Mandible: Normal appearance of the maxillary and mandibular bones. No fractures, lytic or sclerotic lesions. Normal dentition without significant periodontal disease. Facial Bones: No fractures or deformities. Zygomatic arches, nasal bones, and other facial structures are intact. Salivary Glands: Parotid, submandibular, and sublingual glands are normal. No evidence of sialadenitis or masses. Vascular Structures: Normal enhancement of the facial vascular structures. No evidence of vascular malformations or aneurysms. Temporomandibular Joints (TMJ): Normal appearance of the TMJ bilaterally. No evidence of joint effusion, degenerative changes, or dislocation. IMPRESSION: 1. Subcutaneous fat stranding in the left premaxillary region, without definite evidence of fluid/hypodense collection. 2. Multiple small deep cervical lymph nodes, likely reactive. 3. Mucosal thickening is seen in the left maxillary sinus. Electronically signed by Alf Kinney 02-18-2025 01:40 AM Discharge Plan Visit Data Chief Complaint: Skin Problem Stated Complaint: DOG BITE ON FACE, ABSCESSED ED Provider: Miguel Lundberg ED Midlevel Provider: Melba Martinez Discharge Problem: Dog bite, Cellulitis of face Patient Disposition: Admitted As Inpatient Condition: Good Forms Stand Alone Forms: [facility] Prescriptions Prescriptions: No Action meloxicam 15 mg tablet 15 mg PO QAM Rx Instructions: take with food hydroxychloroquine 200 mg tablet 200 mg PO BID Referrals Referrals: Dionisio Thurston MD [Primary Care Provider] -
[2025-02-17 23:48] LABS: Hematocrit (blood only) 35.5 % (37.0-47.0); Hemoglobin 12.0 g/dl (12.0-16.0); Immature Granulocytes # (auto) 0.01 K/uL (0.01-0.20); Immature Granulocytes % (auto) 0.1 %; Mean Corpuscular Hemoglobin 30.2 pg (25.0-34.0); Mean Corpuscular Volume 89.2 fL (80.0-100.0); Platelet Count 322 K/uL (130-400); RDW Standard Deviation 44.0 fL (36.4-46.3); Red Blood Count 3.98 M/uL (4.20-5.40); White Blood Count 7.13 K/ul (4.8-10.8)
[2025-02-18 00:07] LABS: Alanine Aminotransferase 21.0 U/L (7-52); Albumin Globulin Ratio 1.6 (0.9-2); Alkaline Phosphatase 80.0 U/L (34-104); Anion Gap 7.0 (3-11); Bilirubin,Total 0.3 mg/dl (0.2-1.0); Blood Urea Nitrogen 10.0 mg/dl (6-23); Calcium 8.6 mg/dl (8.6-10.3); Carbon Dioxide 23.0 mmol/L (21-32); Chloride 108.0 mmol/L (98-107); Creatinine Clr Calc Pharmacy 120.5 ml/min; Globulin 2.7 gm/dl (2.5-4.0); Glucose 107.0 mg/dl (70-99(Fasting)); Potassium 3.5 mmol/L (3.5-5.1); Sodium 138.0 mmol/L (136-145); Total Protein 7.1 gm/dl (6.0-8.3)
[2025-02-18] MEDS: OPTIRAY 320 100ml IV ONE (00:08)
--- NOTE | 2025-02-18 01:40 | CT Scan Report ---
EXAM: CT facial bones w con CLINICAL HISTORY: Dog bite left face, sutured, now infected/pus. TECHNIQUE: CT. Scan of the paranasal sinuses/facial bones was performed, with sagittal and coronal multiplanar reconstruction with 93ml Opitray-320mg/ml IV contrast. One of the following dose reduction techniques were utilized for this exam: Automated exposure control, adjustment of the mA and/or kV according to patient size, use of iterative reconstruction. COMPARISON: None. FINDINGS: Soft Tissues: Streak artifacts emanating from the dentral implamts obscure adjacent structures. Subcutaneous fat stranding in the left premaxillary region, without definite evidence of fluid/hypodense collection. Multiple small deep cervical lymph nodes, likely reactive. Sinuses: Mucosal thickening is seen in the left maxillary sinus. Soft Tissues: Soft tissues of the face are normal. No abnormal masses, swelling, or lymphadenopathy. Osteomeatal complexes are patent. Nasal Cavity: Nasal cavity is unremarkable. No masses, polyps, or deviations. Orbits: Orbits are normal in size and shape. The extraocular muscles and optic nerves are normal. No evidence of orbital masses or proptosis. Maxilla and Mandible: Normal appearance of the maxillary and mandibular bones. No fractures, lytic or sclerotic lesions. Normal dentition without significant periodontal disease. Facial Bones: No fractures or deformities. Zygomatic arches, nasal bones, and other facial structures are intact. Salivary Glands: Parotid, submandibular, and sublingual glands are normal. No evidence of sialadenitis or masses. Vascular Structures: Normal enhancement of the facial vascular structures. No evidence of vascular malformations or aneurysms. Temporomandibular Joints (TMJ): Normal appearance of the TMJ bilaterally. No evidence of joint effusion, degenerative changes, or dislocation. IMPRESSION: 1. Subcutaneous fat stranding in the left premaxillary region, without definite evidence of fluid/hypodense collection. 2. Multiple small deep cervical lymph nodes, likely reactive. 3. Mucosal thickening is seen in the left maxillary sinus. Electronically signed by Alf Kinney 02-18-2025 01:40 AM
--- NOTE | 2025-02-18 04:16 | History & Physical Report ---
Date of Service February 18, 2025 Assessment & Plan (1) Dog bite: Plan: 39-year-old female with past medical history significant for SLE, lichen sclerosus, migraine, obesity presents with dog bite and failed outpatient treatment. On Wednesday patient had dog bite on her left cheek. She was seen at [facility] ER and the wound was cleansed and repaired with sutures and started on Augmentin. But today patient developed purulent drainage, increased swelling of the area and came to the ER. Denies any fevers. No headache no runny nose or sore throat. No cough. No chest pain or shortness of breath. No nausea. No abdominal pain. Hemodynamics are okay. In the ER sutures were removed. steri strips seen. Resting comfortably. Dog bite On left cheek Did not improve with Augmentin as outpatient Received Unasyn in the ER. Will continue with Unasyn and monitor History of SLE Currently not taking any medications Obesity Counseling DVT prophylaxis Lovenox Disposition Observation medical floor Full code History of Present Illness Chief Complaint: Dog bite Primary Care Provider: Dionisio Thurston MD 39-year-old female with past medical history significant for SLE, lichen sclerosus, migraine, obesity presents with dog bite and failed outpatient treatment. On Wednesday patient had dog bite on her left cheek. She was seen at [facility] ER and the wound was cleansed and repaired with sutures and started on Augmentin. But today patient developed purulent drainage, increased swelling of the area and came to the ER. Denies any fevers. No headache no runny nose or sore throat. No cough. No chest pain or shortness of breath. No nausea. No abdominal pain. Hemodynamics are okay. In the ER sutures were removed. steri strips seen. Resting comfortably. Past medical history. As mentioned above Past surgical history. . Ligation oviducts. [place] tooth removal. Social history. . Smoked an average 0.5 pack every 5 years. Quit in 2010. No alcohol use. No drug use. Family history. Father at hyperlipidemia. Hypertension. PE. Prostate cancer. Mother has hypertension. Stage IV kidney disease. Thyroid disorder. Paternal grandmother had brain cancer. Maternal grandmother had diabetes. Allergies Allergy/AdvReac Type Severity Reaction Status Date / Time No Known Allergies Allergy Unverified 02/18/25 02:34 Home Medications Medication Instructions Recorded Confirmed Type hydroxychloroquine 200 mg tablet 200 mg PO BID 02/18/25 02/18/25 History meloxicam 15 mg tablet 15 mg PO QAM 02/18/25 02/18/25 History Past Med/Surg History Problem List (Updated 02/18/25 @ 04:34 by Melba Martinez PA-C) Cellulitis of face (Acute) Dog bite (Acute) Medical History Lichen sclerosus Migraines SLE (systemic lupus erythematosus) Social History Smoking Status: Former smoker Do You Dip or Chew Tobacco: No; Hx Alcohol Use: Yes Hx Substance Use: No Preferred Language: Estonian Cash Processing Specialist Required: No Beliefs That Will Affect Care: None Current Living Situation: Family Other Information That Helps Us Care for You: No Feels Safe at Home: Yes Safety Concerns: Feels Safe At This Time Assistive Devices: None Review of Systems Review of Systems: All systems reviewed & are unremarkable except as noted in HPI & below Physical Exam Physical Exam: General- Not in distress Head- left check steri strips seen on dog bite region, mild swelling of the region Eyes- PERRL. ENT- oropharynx clear Neck No Neck masses. Lungs- clear to auscultation no wheezing or crackles Heart- regular rate and rhythm; no murmur, no gallop. Abdomen- normal bowel sounds, soft, nontender, no distension Extremities- no pretibial edema, no erythema seen Neuro- alert, oriented PERRL, no facial palsy; no dysarthria; moves extremities Results & Data Results & Data Vital Signs (Past 12 Hours) Vital Signs Temp Pulse Pulse Resp BP BP Pulse Ox 02/18/25 03:00 53 L 02/18/25 01:00 55 L 17 97 02/17/25 23:22 65 17 170/91 H 98 02/17/25 23:07 62 02/17/25 22:38 36.3 C L 61 16 183/87 H 98 O2 Del Method 02/18/25 03:00 02/18/25 01:00 Room Air 02/17/25 23:22 Room Air 02/17/25 23:07 02/17/25 22:38 Room Air Diagnostic Findings Laboratory Results WBC 7.13 K/ul (4.8-10.8) 02/17/25 23:15 RBC 3.98 M/uL (4.20-5.40) L 02/17/25 23:15 Hgb 12.0 g/dl (12.0-16.0) 02/17/25 23:15 POC Hgb 11.9 g/dl (12.0-16.0) L 02/17/25 23:32 Hct 35.5 % (37.0-47.0) L 02/17/25 23:15 POC Hct 35 % (37-47) L 02/17/25 23:32 MCV 89.2 fL (80.0-100.0) 02/17/25 23:15 MCH 30.2 pg (25.0-34.0) 02/17/25 23:15 MCHC 33.8 g/dL (32.0-36.0) 02/17/25 23:15 RDW Std Deviation 44.0 fL (36.4-46.3) 02/17/25 23:15 RDW Coeff of [place]gard 13.4 % (11.5-14.5) 02/17/25 23:15 Plt Count 322 K/uL (130-400) 02/17/25 23:15 MPV 11.1 fL (9.4-12.4) 02/17/25 23:15 Immature Gran % (Auto) 0.1 % 02/17/25 23:15 Neut % (Auto) 67.9 % 02/17/25 23:15 Lymph % (Auto) 20.2 % 02/17/25 23:15 [place] % (Auto) 10.0 % 02/17/25 23:15 Eos % (Auto) 1.1 % 02/17/25 23:15 Baso % (Auto) 0.7 % 02/17/25 23:15 Neut # (Auto) 4.84 K/uL (1.40-6.50) 02/17/25 23:15 Lymph # (Auto) 1.44 K/uL (1.20-3.40) 02/17/25 23:15 [place] # (Auto) 0.71 K/uL (0.11-0.59) H 02/17/25 23:15 Eos # (Auto) 0.08 K/uL (0.00-0.50) 02/17/25 23:15 Baso # (Auto) 0.05 K/uL (0.00-0.20) 02/17/25 23:15 Immature Gran # (Auto) 0.01 K/uL (0.01-0.20) 02/17/25 23:15 POC Sodium 140 mmol/L (135-144) 02/17/25 23:32 Sodium 138 mmol/L (136-145) 02/17/25 23:15 POC Potassium 3.7 mmol/L (3.3-5.0) 02/17/25 23:32 Potassium 3.5 mmol/L (3.5-5.1) 02/17/25 23:15 POC Chloride 106 mmol/L (101-112) 02/17/25 23:32 Chloride 108 mmol/L (98-107) H 02/17/25 23:15 Carbon Dioxide 23 mmol/L (21-32) 02/17/25 23:15 POC Total CO2 23 mmol/L (24-31) L 02/17/25 23:32 Anion Gap 7 (3-11) 02/17/25 23:15 POC Anion Gap 17.0 mmol/L (16-25) 02/17/25 23:32 POC BUN 9 mg/dl (7-18) 02/17/25 23:32 BUN 10 mg/dl (6-23) 02/17/25 23:15 Creatinine 0.76 mg/dl (0.6-1.2) 02/17/25 23:15 POC Creatinine 0.7 mg/dl (0.6-1.3) 02/17/25 23:32 Est Cr Clr Drug Dosing 120.5 ml/min 02/17/25 23:15 eGFR 102.16 02/17/25 23:15 BUN/Creatinine Ratio 13.2 (10-20) 02/17/25 23:15 Glucose 107 mg/dl (70-99(Fasting)) H 02/17/25 23:15 POC Glucose (other) 105 mg/dl (70-99) H 02/17/25 23:32 Lactate 2.0 mmol/L (0.4-2.0) 02/17/25 23:15 Calcium 8.6 mg/dl (8.6-10.3) 02/17/25 23:15 POC Ioniz Calcium [place] 1.12 mmol/l (1.12-1.32) 02/17/25 23:32 Total Bilirubin 0.3 mg/dl (0.2-1.0) 02/17/25 23:15 AST 23 U/L (13-39) 02/17/25 23:15 ALT 21 U/L (7-52) 02/17/25 23:15 Alkaline Phosphatase 80 U/L (34-104) 02/17/25 23:15 Total Protein 7.1 gm/dl (6.0-8.3) 02/17/25 23:15 Albumin 4.4 gm/dl (3.4-5.0) 02/17/25 23:15 Globulin 2.7 gm/dl (2.5-4.0) 02/17/25 23:15 Albumin/Globulin Ratio 1.6 (0.9-2) 02/17/25 23:15 Procalcitonin < 0.02 ng/ml (0-0.5) 02/17/25 23:[address] 02/17/25 23:10 EXAM: CT facial bones w con CLINICAL HISTORY: Dog bite left face, sutured, now infected/pus. TECHNIQUE: CT. Scan of the paranasal sinuses/facial bones was performed, with sagittal and coronal multiplanar reconstruction with 93ml Opitray-320mg/ml IV contrast. One of the following dose reduction techniques were utilized for this exam: Automated exposure control, adjustment of the mA and/or kV according to patient size, use of iterative reconstruction. COMPARISON: None. FINDINGS: Soft Tissues: Streak artifacts emanating from the dentral implamts obscure adjacent structures. Subcutaneous fat stranding in the left premaxillary region, without definite evidence of fluid/hypodense collection. Multiple small deep cervical lymph nodes, likely reactive. Sinuses: Mucosal thickening is seen in the left maxillary sinus. Soft Tissues: Soft tissues of the face are normal. No abnormal masses, swelling, or lymphadenopathy. Osteomeatal complexes are patent. Nasal Cavity: Nasal cavity is unremarkable. No masses, polyps, or deviations. Orbits: Orbits are normal in size and shape. The extraocular muscles and optic nerves are normal. No evidence of orbital masses or proptosis. Maxilla and Mandible: Normal appearance of the maxillary and mandibular bones. No fractures, lytic or sclerotic lesions. Normal dentition without significant periodontal disease. Facial Bones: No fractures or deformities. Zygomatic arches, nasal bones, and other facial structures are intact. Salivary Glands: Parotid, submandibular, and sublingual glands are normal. No evidence of sialadenitis or masses. Vascular Structures: Normal enhancement of the facial vascular structures. No evidence of vascular malformations or aneurysms. Temporomandibular Joints (TMJ): Normal appearance of the TMJ bilaterally. No evidence of joint effusion, degenerative changes, or dislocation. IMPRESSION: 1. Subcutaneous fat stranding in the left premaxillary region, without definite evidence of fluid/hypodense collection. 2. Multiple small deep cervical lymph nodes, likely reactive. 3. Mucosal thickening is seen in the left maxillary sinus. Electronically signed by Alf Kinney 02-18-2025 01:40 AM Code Status & VTE Plan VTE Prophylaxis Plan VTE Prophylaxis will be ordered: Yes
[2025-02-18] MEDS: AMPICILLIN/SULBACTAM SOD 3,000 MG/100 ML BAG IV SCH (05:55)
[2025-02-18] MEDS: ENOXAPARIN INJ 40 MG/0.4 ML SYR SQ SCH (07:50)
[2025-02-18 20:14] VITALS: RESP 16
[2025-02-19 06:18] LABS: Hematocrit (blood only) 35.1 % (37.0-47.0); Hemoglobin 11.8 g/dl (12.0-16.0); Mean Corpuscular Hemoglobin 30.1 pg (25.0-34.0); Mean Corpuscular Volume 89.5 fL (80.0-100.0); Platelet Count 284 K/uL (130-400); RDW Standard Deviation 44.0 fL (36.4-46.3); Red Blood Count 3.92 M/uL (4.20-5.40); White Blood Count 5.01 K/ul (4.8-10.8)
[2025-02-19 06:35] LABS: Anion Gap 5.0 (3-11); Blood Urea Nitrogen 10.0 mg/dl (6-23); Calcium 8.7 mg/dl (8.6-10.3); Carbon Dioxide 28.0 mmol/L (21-32); Chloride 107.0 mmol/L (98-107); Creatinine Clr Calc Pharmacy 121.9 ml/min; Glucose 97.0 mg/dl (70-99(Fasting)); Magnesium 1.9 mg/dl (1.7-2.4); Potassium 3.7 mmol/L (3.5-5.1); Sodium 140.0 mmol/L (136-145)
[2025-02-19 07:04] VITALS: BP 147/96; PULSE 61; TEMP 97.5; O2SAT 97
[2025-02-19] MEDS: ACETAMINOPHEN 325 MG TAB PO PRN (09:31)
--- NOTE | 2025-02-19 15:40 | Discharge Summary ---
Date of Service February 19, 2025 Admission HPI Per Admitting Provider 39-year-old female with past medical history significant for SLE, lichen sclerosus, migraine, obesity presents with dog bite and failed outpatient treatment. On Wednesday patient had dog bite on her left cheek. She was seen at [facility] ER and the wound was cleansed and repaired with sutures and started on Augmentin. But today patient developed purulent drainage, increased swelling of the area and came to the ER. Denies any fevers. No headache no runny nose or sore throat. No cough. No chest pain or shortness of breath. No nausea. No abdominal pain. Hemodynamics are okay. In the ER sutures were r emoved. steri strips seen. Resting comfortably. Past medical history. As mentioned above Past surgical history. . Ligation oviducts. [place] tooth removal. Social history. . Smoked an average 0.5 pack every 5 years. Quit in 2010. No alcohol use. No drug use. Family history. Father at hyperlipidemia. Hypertension. PE. Prostate cancer. Mother has hypertension. Stage IV kidney disease. Thyroid disorder. Paternal grandmother had brain cancer. Maternal grandmother had diabetes. Admission Exam Per Admitting Provider General- Not in distress Head- left check steri strips seen on dog bite region, mild swelling of the region Eyes- PERRL. ENT- oropharynx clear Neck No Neck masses. Lungs- clear to auscultation no wheezing or crackles Heart- regular rate and rhythm; no murmur, no gallop. Abdomen- normal bowel sounds, soft, nontender, no distension Extremities- no pretibial edema, no erythema seen Neuro- alert, oriented PERRL, no facial palsy; no dysarthria; moves extremities Principal Diagnosis Dog bite, infected wound Discharge Exam General- obese young F in NAD Head- left check steri strips seen on dog bite region, mild swelling of the region (improved from yesterday) Eyes- PERRL. Neck No Neck masses. Lungs- clear to auscultation no wheezing Heart- regular rate and rhythm; no murmur Abdomen- normal bowel sounds, soft, nontender, no distension Extremities- no pretibial edema, no erythema seen Neuro- alert, oriented PERRL, no facial palsy; no dysarthria; moves extremities Discharge Data Allergies Allergy/AdvReac Type Severity Reaction Status Date / Time No Known Allergies Allergy Unverified 02/18/25 02:34 Consultations 02/18/25 02:36 ED Decision to Admit Stat Ordered Studies 02/17/25 23:10 CT facial bones w con Stat IMPRESSION: 1. Subcutaneous fat stranding in the left premaxillary region, without definite evidence of fluid/hypodense collection. 2. Multiple small deep cervical lymph nodes, likely reactive. 3. Mucosal thickening is seen in the left maxillary sinus. Hospital Course (1) Dog bite: 39-year-old female with past medical history significant for SLE, lichen sclerosus, migraine, obesity presents with dog bite and failed outpatient treatment. On Wednesday patient had dog bite on her left cheek. She was seen at [facility] ER and the wound was cleansed and repaired with sutures and started on Augmentin. But today patient developed purulent drainage, increased swelling of the area and came to the ER. Denies any fevers. No headache no runny nose or sore throat. No cough. No chest pain or shortness of breath. No nausea. No abdominal pain. Hemodynamics are okay. In the ER sutures were removed. steri strips seen. Resting comfortably. Dog bite, infected wound On left cheek Did not improve with Augmentin (500 dose) as outpatient, wound was sutured and now sutures are removed, steri strips on Received Unasyn in the ER, which was continued on admission Left cheek edema and tenderness much improved. Afebrile, no leukocytosis Will DC home with close PCP follow up. Pt to continue augmentin (875 dose rx sent). Final Cultures pending blood cultx negat. for 24 hrs wound cultx pending History of SLE Cont. home medications Obesity Counseling Total Time Total Time Spent Total Time Spent (In Minutes): 40 Discharge Plan Discharge Items Patient Disposition: Home - Self-Care Reason For Visit: DOG BITE Discharge Diagnosis: Dog bite, infected wound Condition on Discharge: Good Activity: Per Instructions section Non-emergency contact: Primary Care Provider Call non-emergency contact if: you have any medication questions and your symptoms worsen Follow-up/Referrals: Dionisio Thurston MD [Primary Care Provider] - (Date & Time 02/20/2025 1:00 PM Provider: Dionisio Thurston MD [facility]) Diet: Regular Addtl Attending Provider Instructions: Follow up with primary care physician within 1 week. Finish antibiotic treatment as prescribed. If you notice any worsening in your condition, contact health care provider right away. Pending Studies at Discharge: Yes Studies:: wound cultx results, blood cultx results Stand-Alone Forms: [facility] Cess[facility] Medications and DC Order Prescriptions: New amoxicillin-pot clavulanate 875-125 mg tablet 1 tab PO BID 9 Days Qty: 18 0RF Continued meloxicam 15 mg tablet 15 mg PO QAM Rx Instructions: take with food hydroxychloroquine 200 mg tablet 200 mg PO BID Discharge Orders: Discharge Order (Routine); Ordered 02/19/25 Ordered By: Thang Sim Admission Data Admit Date/Time: 02/18/25 03:18 Attending Provider: Thang Sim Admit Provider: Nikolai Beyer Primary Care Provider: Dionisio Thurston Other Providers: Nikolai Beyer
== END 2025-02-19 16:46 | disposition home or self-care (01) ==
LOC: 3W 22:36 → ED 22:36 → SUATTDRO 02-18 03:18 → 3W 02-18 05:13